=== PATIENT | male | born 1980 | race Caucasian/White ===

== ENCOUNTER 2016-11-26 07:04 | Day surgery (SDC) | payer OTHER ==
[~2016-11-26] VITALS: Ht 167.6 cm; Wt 95.5 kg
[~2016-11-26 07:04] MED LIST: DICL25TA PO; TRIA15CR3 TP
[2016-11-26 07:25] VITALS: BP 135/84
[2016-11-26] MEDS ORDERED: ADAL40PE SC (07:38)
[2016-11-26] MEDS ORDERED: CALC60FO2 TP (07:39)
[2016-11-26] MEDS ORDERED: LACTATED RINGERS 1,000 ML IV SCH (07:40)
[2016-11-26] MEDS ORDERED: BUPIVACAINE LIPOSOME/PF INFIL ONE (07:44)
[2016-11-26 07:59] LABS: HEMOGLOBIN 17.2 g/dL (13.7-18.0)
[2016-11-26] MEDS ORDERED: LIDOCAINE 1%, 2ML SQ PRN (08:00)
[2016-11-26] MEDS ORDERED: FENTANYL PF 250 MCG/5ML ONE (08:02)
[2016-11-26] MEDS ORDERED: MIDAZOLAM 1 MG/ML, 2ML ONE (08:03)
[2016-11-26] MEDS ORDERED: SCOPOLAMINE PATCH, 1.5MG PATCH.TD72 TD ONE ×2 (08:18→08:30)
[2016-11-26] MEDS ORDERED: PROMETHAZINE 25 MG/ML, 1ML IV PRN (08:30)
[2016-11-26] MEDS ORDERED: LABETALOL 5MG/ML, 20ML IV PRN (08:30)
[2016-11-26] MEDS ORDERED: METOCLOPRAMIDE 5 MG/ML, 2ML IV PRN (08:30)
[2016-11-26] MEDS ORDERED: FENTANYL PF 100 MCG/2ML IV PRN (08:30)
[2016-11-26] MEDS ORDERED: ACETAMINOPHEN 325 MG TABLET PO PRN (08:30)
[2016-11-26] MEDS ORDERED: ONDANSETRON 2MG/ML, 2ML IVPush PRN (08:30)
[2016-11-26] MEDS ORDERED: HYDROmorphone 1 MG/ML, 1ML IV PRN (08:30)
[2016-11-26] MEDS ORDERED: METOPROLOL 1 MG/ML, 5ML IV PRN (08:30)
[2016-11-26] MEDS ORDERED: EPHEDRINE 50 MG/ML, 1ML IVPush PRN (08:30)
[2016-11-26] MEDS ORDERED: OXYcodone 5 MG/5 ML ORAL.SOL UDC PO PRN (08:30)
[2016-11-26] MEDS ORDERED: hydrALAzine 20 MG/ML, 1ML IV PRN (08:30)
[2016-11-26] MEDS ORDERED: PROPOFOL 10 MG/ML, 20ML ONE (09:09)
[2016-11-26] MEDS ORDERED: DEXAMETHASONE 4 MG/ML, 1ML ONE (09:09)
[2016-11-26] MEDS ORDERED: SUCCINYLCHOLINE 20 MG/ML, 10ML ONE (09:09)
[2016-11-26] MEDS ORDERED: GLYCOPYRROLATE 0.2MG/1ML ONE (09:09)
[2016-11-26] MEDS ORDERED: NEOSTIGMINE 1 MG/ML, 10ML ONE (09:09)
[2016-11-26] MEDS ORDERED: ROCURONIUM 10 MG/ML ONE (09:09)
[2016-11-26] MEDS ORDERED: ONDANSETRON 2MG/ML, 2ML ONE (09:09)
[2016-11-26 09:21] LABS: BLOOD UREA NITROGEN 15 mg/dL (7-18)
[2016-11-26] MEDS ORDERED: OXYcodone 5 MG/5 ML ORAL.SOL UDC ONE (10:22)
== END 2016-11-26 12:45 | disposition home or self-care (01) ==
LOC: OUT 07:04
PROVIDERS: ATTEND Surgery
DX: K60.3 Anal fistula (principal); K08.409 Partial loss of teeth, unspecified cause, unspecified class; K58.9 Irritable bowel syndrome, unspecified; E66.9 Obesity, unspecified; Z68.34 Body mass index [BMI] 34.0-34.9, adult; Z72.89 Other problems related to lifestyle; Z87.891 Personal history of nicotine dependence; Z82.49 Family history of ischemic heart disease and other diseases of the circulatory system; Z80.42 Family history of malignant neoplasm of prostate
CPT/HCPCS: 36415; 46270; 80048; 85025; C9290; J0330; J1100; J2250; J2405; J2704; J2710; J3010; J7120; J3490

== ENCOUNTER 2017-09-02 08:37 | Day surgery (SDC) | payer OTHER ==
[~2017-09-02] VITALS: Ht 152.4 cm; Wt 95.0 kg
[~2017-09-02 08:37] MED LIST changes: +ADAL40PE SC; +BUPIVACAINE/PF 0.5% ONE; +CALC60FO2 TP
[2017-09-02 09:34] VITALS: BP 120/78
[2017-09-02] MEDS ORDERED: LIDOCAINE JELLY RC (09:46)
[2017-09-02] MEDS ORDERED: FENTANYL PF 100 MCG/2ML ONE ×3 (09:47→11:12)
[2017-09-02] MEDS ORDERED: MIDAZOLAM 1 MG/ML, 2ML ONE (09:47)
[2017-09-02] MEDS ORDERED: LACTATED RINGERS 1,000 ML IV SCH (09:48)
[2017-09-02] MEDS ORDERED: KETOROLAC 30 MG/1 ML ONE ×2 (09:49→10:36)
[2017-09-02] MEDS ORDERED: LIDOCAINE 1%, 2ML ONE (09:51)
[2017-09-02] MEDS ORDERED: NEOSTIGMINE 1 MG/ML, 10ML ONE (09:54)
[2017-09-02] MEDS ORDERED: PROPOFOL 10 MG/ML, 20ML ONE (09:54)
[2017-09-02] MEDS ORDERED: ROCURONIUM 10 MG/ML,10ML ONE (09:54)
[2017-09-02] MEDS ORDERED: GLYCOPYRROLATE 0.4 MG/2 ML, 2ML ONE (09:55)
[2017-09-02] MEDS ORDERED: LIDOCAINE 1%, 2ML SQ PRN ×2 (10:00)
[2017-09-02] MEDS ORDERED: PROMETHAZINE 25 MG/ML, 1ML IV PRN (10:30)
[2017-09-02] MEDS ORDERED: ONDANSETRON 2MG/ML, 2ML IVPush PRN (10:30)
[2017-09-02] MEDS ORDERED: hydrALAzine 20 MG/ML, 1ML IV PRN (10:30)
[2017-09-02] MEDS ORDERED: MEPERIDINE/PF 25MG/0.5ML IVPush PRN (10:30)
[2017-09-02] MEDS ORDERED: OXYcodone 5 MG/5 ML ORAL.SOL UDC PO PRN (10:30)
[2017-09-02] MEDS ORDERED: ACETAMINOPHEN 325 MG TABLET PO PRN (10:30)
[2017-09-02] MEDS ORDERED: FENTANYL PF 100 MCG/2ML IV PRN (10:30)
[2017-09-02] MEDS ORDERED: HYDROmorphone 1 MG/ML, 1ML IV PRN (10:30)
[2017-09-02] MEDS ORDERED: LABETALOL 5MG/ML, 20ML IV PRN (10:30)
[2017-09-02] MEDS ORDERED: OXYcodone 5 MG/5 ML ORAL.SOL UDC ONE (11:12)
[2017-09-02] MEDS ORDERED: ACETAMINOPHEN 650 MG/20.3 ML UDC ONE (11:12)
== END 2017-09-02 13:05 ==
LOC: OUT 08:37
PROVIDERS: ATTEND Surgery
DX: K60.3 Anal fistula (principal)
CPT/HCPCS: 46280; J1885; J2250; J2704; J2710; J3010; J3490

== ENCOUNTER 2017-10-14 06:07 | Day surgery (SDC) | payer OTHER ==
[~2017-10-14] VITALS: Ht 167.6 cm; Wt 95.0 kg
[~2017-10-14 06:07] MED LIST changes: -BUPIVACAINE/PF 0.5% ONE; +LIDOCAINE JELLY RC
[2017-10-14 06:33] VITALS: BP 121/78
[2017-10-14] MEDS ORDERED: LIDOCAINE 1%, 2ML ONE (06:34)
[2017-10-14] MEDS ORDERED: LACTATED RINGERS 1,000 ML IV SCH (06:49)
[2017-10-14] MEDS ORDERED: LIDOCAINE 1%, 2ML SQ PRN (07:00)
[2017-10-14] MEDS ORDERED: MIDAZOLAM 1 MG/ML, 2ML ONE (07:15)
[2017-10-14] MEDS ORDERED: FENTANYL PF 250 MCG/5ML ONE (07:15)
[2017-10-14] MEDS ORDERED: BUPIVACAINE/PF 0.5% ONE (07:32)
[2017-10-14] MEDS ORDERED: LIDOCAINE 4%, 4 ML SYR/CANN TP ONE (07:33)
[2017-10-14] MEDS ORDERED: SCOPOLAMINE 1MG PATCH TD ONE (07:39)
[2017-10-14] MEDS ORDERED: ROCURONIUM 10 MG/ML,10ML ONE (07:54)
[2017-10-14] MEDS ORDERED: SUCCINYLCHOLINE 20 MG/ML, 10ML ONE (07:54)
[2017-10-14] MEDS ORDERED: ONDANSETRON 2MG/ML, 2ML ONE (07:54)
[2017-10-14] MEDS ORDERED: NEOSTIGMINE 1 MG/ML, 10ML ONE (07:54)
[2017-10-14] MEDS ORDERED: CEFAZOLIN 1,000 MG ONE (07:54)
[2017-10-14] MEDS ORDERED: DEXAMETHASONE 4 MG/ML, 1ML ONE (07:54)
[2017-10-14] MEDS ORDERED: PROPOFOL 10 MG/ML, 20ML ONE (07:54)
[2017-10-14] MEDS ORDERED: GLYCOPYRROLATE 0.2MG/1ML, 5ML ONE (07:54)
[2017-10-14] MEDS ORDERED: HYDROmorphone 1 MG/ML, 1ML IV PRN (08:00)
[2017-10-14] MEDS ORDERED: ONDANSETRON 2MG/ML, 2ML IVPush PRN (08:00)
[2017-10-14] MEDS ORDERED: MEPERIDINE/PF 25MG/0.5ML IVPush PRN (08:00)
[2017-10-14] MEDS ORDERED: PROMETHAZINE 25 MG/ML, 1ML IV PRN (08:00)
[2017-10-14] MEDS ORDERED: OXYcodone 5 MG/5 ML ORAL.SOL UDC PO PRN (08:00)
[2017-10-14] MEDS ORDERED: HYDROcodone/APAP 7.5-325MG/15ML UDC PO PRN (08:00)
[2017-10-14] MEDS ORDERED: FENTANYL PF 100 MCG/2ML IV PRN (08:00)
[2017-10-14] MEDS ORDERED: OXYcodone 5 MG/5 ML ORAL.SOL UDC ONE (08:49)
[2017-10-14] MEDS ORDERED: FENTANYL PF 100 MCG/2ML ONE (08:49)
[2017-10-14] MEDS ORDERED: HYDROmorphone 2 MG/ML, 1ML ONE (08:49)
[2017-10-14] MEDS ORDERED: POLYETHYLENE GLYCOL 17 GM PACKET NG ONE (10:00)
== END 2017-10-14 11:05 | disposition home or self-care (01) ==
LOC: OUT 06:07
PROVIDERS: ATTEND Surgery
DX: K60.2 Anal fissure, unspecified (principal); K62.0 Anal polyp; K62.89 Other specified diseases of anus and rectum
CPT/HCPCS: 46275; 88305; J0330; J0690; J1100; J2250; J2405; J2704; J3010; J3490; J7120; J2710

== ENCOUNTER → 2020-03-03 | Outpatient (CLI) | payer OTHER ==
[~2020-03-03] MED LIST changes: -TRIA15CR3 TP; +TRIA15CR61 TP
[2020-03-03 12:23] LABS: BASOPHILS # (AUTO) 0.01 x10^3/uL (0-0.1); BASOPHILS % (AUTO) 0 % (0-1); EOSINOPHILS % (AUTO) 4 % (1-7); LYMPHOCYTES # (AUTO) 1.65 x10^3/uL (1-3.4); LYMPHOCYTES % (AUTO) 36 % (22-44); MD NO; MEAN CORPUSCULAR HEMOGLOBIN 30.8 pg (27.5-34.5); MEAN CORPUSCULAR HGB CONC 33.3 g/dL (33.2-36.2); MEAN CORPUSCULAR VOLUME 92.5 fL (81-97); MEAN PLATELET VOLUME 8.1 fL (7.4-10.4); MONOCYTES # (AUTO) 0.36 x10^3/uL (0.2-0.8); MONOCYTES % (AUTO) 8 % (2-9); NEUTROPHILS # (AUTO) 2.41 x10^3/uL (1.8-6.8); NEUTROPHILS % (AUTO) 52 % (42-75); PLATELET COUNT 189 x10^3/uL (130-400); RED BLOOD COUNT 5.37 x10^6/uL (4.38-5.82); RED CELL DISTRIBUTION WIDTH 13.5 % (9.4-14.8)
[2020-03-03 12:31] LABS: ALANINE AMINOTRANSFERASE 35 U/L (12-78); ALBUMIN 3.7 g/dL (3.4-5.0); ANION GAP 6 mmol/L (5-15); CALCIUM 9.1 mg/dL (8.5-10.1); CHLORIDE 106 mmol/L (98-107); CREATININE 1.25 mg/dL (0.7-1.3)
[2020-03-03 12:34] LABS: ALKALINE PHOSPHATASE 54 U/L (45-117); BILIRUBIN,TOTAL 0.5 mg/dL (0.2-1.0); TOTAL PROTEIN 7.6 g/dL (6.4-8.2)
== END | disposition home or self-care (01) ==
LOC: LAB 12:01
PROVIDERS: ATTEND Dermatology
DX: L40.8 Other psoriasis (principal); Z79.899 Other long term (current) drug therapy
CPT/HCPCS: 36415; 80053; 85025; 86480

== ENCOUNTER → 2020-05-13 | Outpatient (CLI) | payer OTHER ==
[2020-05-13 13:21] LABS: CHLORIDE 111 mmol/L (98-107)
[2020-05-13 13:26] LABS: BASOPHILS # (AUTO) 0.01 x10^3/uL (0-0.1); BASOPHILS % (AUTO) 0 % (0-1); EOSINOPHILS # (AUTO) 0.13 x10^3/uL (0-0.4); EOSINOPHILS % (AUTO) 3 % (1-7); LYMPHOCYTES # (AUTO) 1.22 x10^3/uL (1-3.4); LYMPHOCYTES % (AUTO) 25 % (22-44); MD NO; MEAN CORPUSCULAR HEMOGLOBIN 30.4 pg (27.5-34.5); MEAN CORPUSCULAR HGB CONC 33.5 g/dL (33.2-36.2); MEAN CORPUSCULAR VOLUME 90.8 fL (81-97); MONOCYTES # (AUTO) 0.28 x10^3/uL (0.2-0.8); MONOCYTES % (AUTO) 6 % (2-9); NEUTROPHILS # (AUTO) 3.17 x10^3/uL (1.8-6.8); NEUTROPHILS % (AUTO) 66 % (42-75); PLATELET COUNT 189 x10^3/uL (130-400); RED BLOOD COUNT 5.22 x10^6/uL (4.38-5.82); RED CELL DISTRIBUTION WIDTH 12.9 % (9.4-14.8)
[2020-05-13 13:42] LABS: ALANINE AMINOTRANSFERASE 27 U/L (12-78); ALBUMIN 3.6 g/dL (3.4-5.0); ALKALINE PHOSPHATASE 55 U/L (45-117); ANION GAP 7 mmol/L (5-15); BILIRUBIN,TOTAL 0.6 mg/dL (0.2-1.0); CALCIUM 8.9 mg/dL (8.5-10.1); CHOL/HDL RATIO 4.3; CHOLESTEROL, TOTAL 199 mg/dL (140-239); CREATININE 1.11 mg/dL (0.7-1.3); FREE T4 (FREE THYROXINE) 1.18 ng/dL (0.76-1.46); HDL CHOL % 23 % (26-37); HDL CHOLESTEROL (DIRECT) 46 mg/dL (40-60); LDL CHOLESTEROL,CALCULATED 122 mg/dL (54-169); LDL/HDL RATIO 2.7 (0.5-3.0); TOTAL PROTEIN 7.3 g/dL (6.4-8.2); TRIGLYCERIDES 156 mg/dL (50-200); VLDL CHOLESTEROL 31 mg/dL (0-25)
== END | disposition home or self-care (01) ==
LOC: CFH 08:00
PROVIDERS: ATTEND Family Medicine
DX: Z13.220 Encounter for screening for lipoid disorders (principal); R61 Generalized hyperhidrosis
CPT/HCPCS: 36415; 80053; 80061; 84439; 84443; 84480; 85025

== ENCOUNTER → 2020-05-14 | Outpatient (CLI) | payer OTHER | END | disposition home or self-care (01) | LOC: CFH 11:27 | PROVIDERS: ATTEND Family Medicine | DX: M25.521 Pain in right elbow (principal) ==